=== PATIENT | female | born 1950 | race Caucasian/White ===

== ENCOUNTER → 2018-05-16 | Outpatient (CLI) | payer MEDICARE, OTHER ==
[~2018-05-16] MED LIST: ACET-1966 PO; DOXY-181 PO; METR-1 PO; ONDA4TAB PO; OXYC-865 PO
--- NOTE | 2018-05-16 10:52 | RADIOLOGY IMAGING REPORT ---
FACILITY: [facility] [place]IENT NAME: Linette Singh : 1950 MR: [id number] V: [id number] EXAM DATE: ORDERING PHYSICIAN: KATY SALCIDO TECHNOLOGIST: Location: [facility] - [place] Patient: Linette Singh : 1950 Visit/Account:[id number] Date of Sevice: 05/16/2018 Exam type: CERVICAL SPINE 2 OR 3 VIEW History: Long-term neck pain, no known injury Comparison: None. Findings: There is straightening of normal cervical lordosis which can be seen with muscle spasm. This mild di sc space narrowing noted at C3-4 mild to moderate disc space narrowing C4-5, C5-6 and mild disc space narrowing at C6-7 and C7-T1. There is no evidence of acute fractures. There are extensive degenera tive changes of the facet joints throughout the cervical spine particularly prominent at C5-6 and C6- 7. There is no evidence of prevertebral soft tissue swelling. Incidentally noted are calcifications in the nuchal ligament IMPRESSION: 1. Extensive spondylotic changes of the cervical spine as described above. If patient's symptoms pe rsist MR may be helpful Straightening of normal cervical doses which can be seen with muscle spasm Report Dictated By: Rachel Kunz MD at 05/16/2018 10:41 AM Report E-Signed By: Rachel Kunz MD at 05/16/2018 10:47 AM WSN:[email or web address]
== END ==
LOC: RAD 10:01
PROVIDERS: ATTEND Family Medicine
DX: M47.892 Other spondylosis, cervical region (principal)
CPT/HCPCS: 72040

== ENCOUNTER → 2018-05-28 | Outpatient (CLI) | payer MEDICARE, OTHER ==
--- NOTE | 2018-05-28 15:49 | RADIOLOGY IMAGING REPORT ---
FACILITY: [facility] - [place] PATIENT NAME: Linette Singh : 1950 MR: [id number] V: [id number] EXAM DATE: ORDERING PHYSICIAN: KATY SALCIDO TECHNOLOGIST: Location: [facility] - [place] Patient: Linette Singh : 1950 Visit/Account:[id number] Date of Sevice: 05/28/2018 EXAMINATION: MR SPINE CERVICAL W/O CON INDICATION: Left-sided neck pain COMPARISON: Radiographs May 16, 2018 TECHNIQUE: Multiplane MR imaging was performed through the cervical spine without contrast. FINDINGS: Vertebral body height: Normal cervical vertebral body heights. Minimal chronic T1, T2 and T3 wedge co mpression deformities. Cord signal: Normal Marrow signal: Degenerative edema within the left C2 and C3 articular pillars. Minimal degenerative e denise surrounds the C5-6 disc space. Prevertebral and paraspinal soft tissues: Normal C2-3: Moderate facet arthropathy, no disc protrusion or canal narrowing. Moderate left and moderate t o severe right foraminal narrowing. C3-4: No disc protrusion or canal narrowing. Moderate right facet arthropathy. Moderate right foramin al narrowing, otherwise normal. C4-5: No disc protrusion or canal narrowing. Moderate facet arthropathy. Moderate left and mild right foraminal narrowing. C5-6: Mild disc space degeneration, uncovertebral arthropathy, ligamentum flavum thickening, small di sc protrusion, mild to moderate canal narrowing, severe left and moderate right foraminal narrowing. C6-7: Small disc protrusion/extrusion, ligamentum flavum thickening, mild to moderate canal narrowing , moderate to severe right facet arthropathy, severe right and moderate left foraminal narrowing. C7-T1: Slight anterolisthesis of C7 on T1, no disc protrusion or canal narrowing, normal foramen. IMPRESSION: 1. Mild to moderate C5-6 and C6-7 canal narrowing secondary to the constellation of findings describe d above. 2. Multilevel facet arthropathy, see comments above. 3. Multilevel foraminal narrowing, see level by level comments above. Report Dictated By: Terry Raymundo MD at 05/28/2018 3:40 PM Report E-Signed By: Terry Raymundo MD at 05/28/2018 3:45 PM WSN:[email or web address]
== END ==
LOC: MRI 01:04
PROVIDERS: ATTEND Family Medicine
DX: M48.02 Spinal stenosis, cervical region (principal)
CPT/HCPCS: 72141